=== PATIENT | male | born 1965 | race Caucasian/White ===

== ENCOUNTER 2020-05-04 14:20 | Emergency (ER) | payer MEDICAID ==
[~2020-05-04] VITALS: Ht 182.9 cm; Wt 111.1 kg
[~2020-05-04 14:20] MED LIST: DIVA-74 PO; PHEN100C4 PO; PHEN64.8 PO
[2020-05-04 14:22] VITALS: BP_SYST 163
--- NOTE | 2020-05-04 14:25 | NUR ---
Pt bib ambulance s/t 4 seizures today at board and care. Luz a/o x4. Denies any trauma. V/S stable, currently resting in bed. Seizures precautions in place. Will continue to monitor.
--- NOTE | 2020-05-04 14:30 | NUR ---
ER Dr. Amaya at bedside examining patient.
--- NOTE | 2020-05-04 14:39 | NUR ---
Patient transported to radiology via gurney, accompanied by staff.
[2020-05-04] MEDS ORDERED: NACL 0.9% 1,000 ML IV ONE (14:45)
--- NOTE | 2020-05-04 14:57 | NUR ---
EKG performed at BS by EMT. Physician given copy of EKG for review.
--- NOTE | 2020-05-04 15:21 | NUR ---
1L NS bolus infusing as ordered
--- NOTE | 2020-05-04 15:21 | NUR ---
Urine collected and sent to lab
[2020-05-04 15:22] LABS: ANION GAP 5 (5-15); BASOPHILS # (AUTO) 0.1 K/uL (0.0-0.2); BASOPHILS % (AUTO) 1.1 % (0.0-2.0); CHLORIDE 96 mmol/L (98-107); CREATININE 0.85 mg/dL (0.55-1.30); EOSINOPHILS # (AUTO) 0.4 K/uL (0.0-0.4); EOSINOPHILS % (AUTO) 5.8 % (0.0-4.0); GLUCOSE 118 mg/dL (70-99); HEMATOCRIT 41.1 % (36-54); HEMOGLOBIN 14.1 g/dL (14.0-18.0); LYMPHOCYTES # (AUTO) 2.1 K/uL (1.0-5.5); LYMPHOCYTES % (AUTO) 34.6 % (20.5-51.5); MEAN CORPUSCULAR HEMOGLOBIN 33 pg (27-31); MEAN CORPUSCULAR HGB CONC 34 % (32-36); MEAN CORPUSCULAR VOLUME 95 fL (79.0-98.0); MONOCYTES # (AUTO) 0.5 K/uL (0.0-1.0); MONOCYTES % (AUTO) 8.7 % (1.7-9.3); NEUTROPHILS # (AUTO) 3.1 K/uL (1.8-7.7); NEUTROPHILS % (AUTO) 49.8 % (40.0-70.0); PLATELET COUNT (AUTO) 309 K/uL (130-430); POTASSIUM 4.1 mmol/L (3.5-5.1); RED BLOOD CELL COUNT(AUTO) 4.32 MIL/uL (4.2-6.2); RED CELL DISTRIBUTION WIDTH 12.2 % (9.0-15.0); SODIUM SERUM 129 mmol/L (136-145); UREA NITROGEN, BLOOD 12 mg/dL (8-21); WHITE BLOOD COUNT (AUTO) 6.2 K/uL (4.8-10.8)
[2020-05-04 15:25] LABS: GFR AFRICAN AMERICAN 120 mL/min (>90)
[2020-05-04 15:28] LABS: ALANINE AMINOTRANSFERASE 75 U/L (12-78); ALBUMIN 3.6 g/dL (3.4-4.8); ALCOHOL, BLOOD 3 mg/dL (<10); ASPARTATE AMINOTRANSFERASE 48 U/L (10-37); TOTAL BILIRUBIN 0.3 mg/dL (0.0-1.0)
[2020-05-04 15:32] LABS: ACETAMINOPHEN < 1 ug/mL (1-30)
[2020-05-04 15:34] LABS: BILIRUBIN,URINE NEGATIVE (NEGATIVE); CLARITY/URINE CLEAR (CLEAR); COLOR,URINE YELLOW (YELLOW); GLUCOSE,URINE NEGATIVE (NEGATIVE); KETONES,URINE NEGATIVE (NEGATIVE); LEUKOCYTE ESTERASE ,URINE NEGATIVE (NEGATIVE); NITRITE, URINE NEGATIVE (NEGATIVE); PH,URINE 6.5 (5.0-8.0); PROTEIN URINE 2+ (NEGATIVE)
[2020-05-04 15:36] LABS: BLOOD, URINE TRACE (NEGATIVE)
[2020-05-04 15:44] LABS: BACTERIA,URINE None Seen /HPF (None Seen); RBC,URINE NONE SEEN /HPF (0-3); WBC,URINE 0-3 /HPF (0-3)
[2020-05-04 15:45] LABS: MUCUS,URINE None Seen /LPF (None Seen)
[2020-05-04 15:46] LABS: BARBITURATE, URINE NEGATIVE (NEG <=200); BENZODIAZEPINE, URINE NEGATIVE (NEG <=150); CANNABINOID, URINE NEGATIVE (NEG <=50); COCAINE, URINE NEGATIVE (NEG <=150); METHAMPHETAMINES SCREEN,URINE NEGATIVE (NEG <=500); OPIATE, URINE NEGATIVE (NEG <=100); PHENCYCLIDINE SCREEN,URINE NEGATIVE (NEG <=25); UR TRICYCLIC ANTIDEPRESSANTS NEGATIVE (NEG <=300); URINE AMPHETAMINE NEGATIVE (NEG <=500); URINE METHADONE NEGATIVE (NEG <=200); URINE OXYCODONE SCREEN NEGATIVE (NEG <=100); URINE PROPOXYPHENE SCREEN NEGATIVE (NEG <=300)
[2020-05-04] MEDS ORDERED: AMLO2.5T2 PO (17:24)
[2020-05-04] MEDS ORDERED: LACO50TA2 PO (17:26)
[2020-05-04] MEDS ORDERED: OXCA150T5 PO (17:28)
[2020-05-04] MEDS ORDERED: CHOL500037 PO (17:28)
[2020-05-04] MEDS ORDERED: LEVE1000 PO (17:29)
[2020-05-04] MEDS ORDERED: FLUT16SP16 NS (17:29)
--- NOTE | 2020-05-04 17:37 | NUR ---
Belongings list and med rec completed.
--- NOTE | 2020-05-04 17:51 | NUR ---
Per MD unger to order dinner tray for patient. Low sodium diet requested from dietary.
--- NOTE | 2020-05-04 19:00 | NUR ---
Care of patient endorsed to LISA Mcmahan
--- NOTE | 2020-05-04 19:11 | NUR ---
Report recieved. Pt in [facility]. No seizure activity noted during ER visit. VSS
[2020-05-04 20:59] VITALS: BP_SYST 167
--- NOTE | 2020-05-04 21:02 | NUR ---
Patient given written and verbal discharge instructions and verbalizes understanding. ER MD discussed with patient the results and treatment provided. Patient in stable condition. ID arm band removed. Patient educated on pain management and to follow up with PMD. Pain Scale 0/10. Opportunity for questions provided and answered. Medication side effect fact sheet provided. pt transferred to [facility]
--- NOTE | 2020-05-04 21:03 | NUR ---
Patient to be transferred to [facility] . Is being transferred due to higher level of care. Receiving facility has accepting physician and available space. ER physician has signed transfer form. Patient or responsible alliance party has agreed to transfer and signed form. Patient belongings inventoried and will be sent with patient. Copy of nursing notes, lab reports, EKG, Physicians Orders and X-rays to be sent with patient. Report called to Mukesh GONZALEZ at receiving facility. Receiving physician is [place]. S ambulance service has been called for transfer. ETA is 60 minutes.
== END 2020-05-04 21:03 | disposition short-term general hospital (02) ==
LOC: SED 14:20
DX: G40.909 Epilepsy, unspecified, not intractable, without status epilepticus (principal); E87.1 Hypo-osmolality and hyponatremia; Z79.899 Other long term (current) drug therapy
CPT/HCPCS: 36415; 70450; 71045; 80053; 80307; 81000; 83735; 85025; 93005; 99285; G0480; G0481; G0482; J7030